=== PATIENT | female | born 1995 | race African-American/Black ===

== ENCOUNTER 2016-12-11 19:45 | Emergency (ER) | payer OTHER ==
[~2016-12-11] VITALS: Ht 167.6 cm; Wt 60.8 kg
[2016-12-11 19:52] VITALS: BP 104/66; PULSE 72; RESP 16; TEMP 98.2; O2SAT 100
--- NOTE | 2016-12-11 21:04 | PD ---
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 The patient reports that for the last 3 days, she has intermittently been experiencing pressure/pain inside her vagina. Pain is worse with movements and certain sitting positions. Currently the patient denies having any pain. She denies vaginal bleeding or discharge. States that her last [place]. Was about a week ago. She is sexually active with more than one partner. No history of abdominal surgeries. No urinary symptoms. PFSH Social History Tobacco Use: No (former smoker) Allergies-Medications (Allergen,Severity, Reaction): Coded Allergies: No Known Allergies (Unverified , 12/11/16) Reported Meds & Prescriptions Reported Meds & Active Scripts Active Naprosyn (Naproxen) 500 Mg Tab 500 Mg PO BID Macrobid (Nitrofurantoin Monoh/Nitrofur Macro) 100 Mg Cap 100 Mg PO BID 7 Days Review of Systems Except as stated in HPI: all other systems reviewed are Neg Physical Exam Narrative GENERAL: Well-developed, well-nourished, comfortable, no acute distress. SKIN: Focused skin assessment warm/dry. CARDIOVASCULAR: Regular rate and rhythm. RESPIRATORY: No accessory muscle use. Clear to auscultation. Breath sounds equal bilaterally. GASTROINTESTINAL: Abdomen soft, non-tender, nondistended. Normal bowel sounds. No hernias. INDEPENDENT CONTRACTOR: Exam performed in the presence of female nurse. Normal external genitalia. Scant/whitish vaginal discharge. No vaginal bleeding. Normal cervix. Mild uterine tenderness. No CMT. No adnexal masses or tenderness. MUSCULOSKELETAL: No obvious deformities. No clubbing. No cyanosis. No edema. NEUROLOGICAL: Awake and alert. No obvious cranial nerve deficits. Motor grossly within normal limits. Normal speech. PSYCHIATRIC: Appropriate mood and affect; insight and judgment normal. Data Data Last Documented VS Vital Signs Date Time Temp Pulse Resp B/P Pulse Ox O2 Delivery O2 Flow Rate FiO2 12/11/16 21:30 86 16 100/65 100 Room Air 12/11/16 19:52 98.2 Orders Gc And Chlamydia Pcr (12/11/16 20:53) Wet Prep Profile (12/11/16 20:53) Urinalysis - C+S If Indicated (12/11/16 20:53) Ed Urine Pregnancytest Poc (12/11/16 20:53) Azithromycin Powd Pack (Zithromax Powd P (12/11/16 21:15) Ceftriaxone Inj (Rocephin Inj) (12/11/16 21:15) Lidocaine 1% Inj (50 Ml) (Xylocaine 1% I (12/11/16 21:15) Urine Culture (12/11/16 20:40) Nitrofurantoin Monohyd Macrocr (Macrobid (12/11/16 21:45) Naproxen (Naprosyn) (12/11/16 21:45) Labs Laboratory Tests Test 12/11/16 12/11/16 20:40 20:50 Urine Color STRAW Urine Turbidity SL Urine pH 6.5 Urine Specific [place] 1.012 Urine Protein NEG mg/dL Urine Glucose (UA) NEG mg/dL Urine Ketones NEG mg/dL Urine Occult Blood NEG Urine Nitrite NEG Urine Bilirubin NEG Urine Leukocyte Esterase MOD Urine RBC 0-3 /hpf Urine WBC 15-19 /hpf Urine Squamous Epithelial 0-5 /hpf Cells Urine Bacteria OCC /hpf Microscopic Urinalysis Comment CULTURE INDICATED Clue Cells (Wet Prep) NONE SEEN Vaginal Trichomonas (Wet Prep) NONE SEEN Vaginal Yeast (Wet Prep) NONE SEEN MDM Medical Decision Making Medical Screen Exam Complete: Yes Emergency Medical Condition: Yes Differential Diagnosis PID, BV, vulvovaginal candidiasis, UTI, cystitis, , ectopic , TOA, ovarian cyst, ovarian torsion unlikely Narrative Course Vital signs show heart rate 72, blood pressure 104/66, pulse ox 100% on room air , oral temp of 98.2F. Abdominal exam is benign. INDEPENDENT CONTRACTOR exam shows some mild uterine tenderness, no CMT, no adnexal masses or tenderness, scant whitish vaginal discharge. Patient has elected to receive emperic treatment for gonorrhea and chlamydia. UA: Moderate leukocyte esterase, 15-19 wbc's, occasional bacteria, culture indicated. Patient will be started on Macrobid. Wet prep is negative for yeast, negative for Trichomonas, negative for clue cells Patient was made aware of all findings. She is resting comfortably. Again she has no pain here in the emergency department. Her abdominal exam is benign. I do not believe that there is no acute surgical process to warrant imaging at this time. She will be discharged home with a prescription for Macrobid and Naprosyn. PMD/INDEPENDENT CONTRACTOR follow-up this week. She was informed on when to return to the emergency department. She verbalizes understanding and agreement with plan. Diagnosis Primary Impression: Pelvic pain Additional Impression: UTI (urinary tract infection) Qualified Code: N39.0 - Urinary tract infection without hematuria, site unspecified Referrals: Diann Brown MD 3 days Dental Service Chief Primary Care Physician 3 days Additional Instructions: Follow-up with a primary care physician this week. Follow-up with a convict guard this week. Return to the emergency department for worsening symptoms or any other concerns. Scripts Naproxen (Naprosyn)500 Mg [id number] Mg PO BID #14 TAB Ref 0 Prov:Ronnie Mendieta MD 12/11/16 Nitrofurantoin Monohydrate Macrocrystals (Macrobid)100 Mg [id number] Mg PO BID 7 Days Ref 0 Prov:Ronnie Mendieta MD 12/11/16 Disposition: 01 DISCHARGE HOME Condition: Stable Ronnie Mendieta MD December 11, 2016 21:04
[2016-12-11] MEDS ORDERED: LIDOCAINE HCL 1% 50 ML VIAL IM ONE (21:15)
[2016-12-11] MEDS ORDERED: cefTRIAXone 250 MG VIAL IM ONE (21:15)
[2016-12-11] MEDS ORDERED: AZITHROMYCIN PWD FOR SUSP 1 GM PACKET PO ONE (21:15)
[2016-12-11 21:18] LABS: BLOOD, URINE NEG (NEG); GLUCOSE,URINE NEG (NEG); KETONE, URINE NEG (NEG); NITRITE,URINE NEG (NEG); PH, URINE 6.5 (5.0-8.5)
[2016-12-11 21:30] VITALS: BP 100/65; PULSE 86; RESP 16; O2SAT 100
[2016-12-11 21:31] LABS: BACTERIA, URINE OCC /hpf; COMMENT (UR) CULTURE INDICATED; CULTURE IF INDICATED CULTURE INDICATED; RBC, URINE 0-3 /hpf (0-3); SQUAMOUS EPITHELIAL CELL URINE 0-5 /hpf (0-5); URINE COLOR STRAW (YELLW/STRAW); WBC, URINE 15-19 /hpf (0-5)
[2016-12-11] MEDS ORDERED: NAPR500 PO (21:40)
[2016-12-11] MEDS ORDERED: MACR100C2 PO (21:40)
[2016-12-11] MEDS ORDERED: NITROFURANTOIN MONOHYD MACROCR 100 MG CAP PO ONE (21:45)
[2016-12-11] MEDS ORDERED: NAPROXEN 500 MG TAB PO ONE (21:45)
[2016-12-12 12:53] LABS: CHLAMYDIA PCR DETECTED (NOT DETECT); NEISSERIA PCR DETECTED (NOT DETECT)
== END 2016-12-11 21:59 | disposition home or self-care (01) ==
LOC: PHED 19:45
DX: N39.0 Urinary tract infection, site not specified (principal); R10.2 Pelvic and perineal pain; B96.29 Other Escherichia coli [E. coli] as the cause of diseases classified elsewhere
CPT/HCPCS: 81001; 84703; 87086; 87210; 87491; 87591; 96372; 99284; J0696

== ENCOUNTER 2017-04-10 08:42 | Emergency (ER) | payer MEDICAID, OTHER ==
[~2017-04-10] VITALS: Ht 167.6 cm; Wt 58.0 kg
[~2017-04-10 08:42] MED LIST: MACR100C2 PO; NAPR500 PO
[2017-04-10 08:51] VITALS: BP 106/58; PULSE 72; RESP 18; TEMP 97.7; O2SAT 100
[2017-04-10] MEDS ORDERED: ACYC400T PO (09:52)
[2017-04-10] MEDS ORDERED: NORC5TAB PO (09:52)
--- NOTE | 2017-04-10 09:52 | PD ---
HPI . 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 She states that she initially attributed the pain to a "tear" secondary to sexual intercourse. She kept thinking that it would get better. However, it did not. Pain is currently rated 1/10 but gets much worse with attempted sexual intercourse. She denies any associated vaginal discharge or abnormal vaginal bleeding. She denies any previous similar history. She has not tried any over- the-counter or homeopathic remedies. She states her pain has been continuous and persistent causing her to present us today. PFSH Past Medical History Medical History: Denies Significant Hx Diminished Hearing: No Immunizations Current: Yes Influenza Vaccination: No ?: Not : 0 Past Surgical History Surgical History: No Previous Surgery Social History Alcohol Use: Yes (OCC) Tobacco Use: No (former smoker) Substance Use: No (DENIES) Allergies-Medications (Allergen,Severity, Reaction): Coded Allergies: No Known Allergies (Unverified , 04/10/17) Reported Meds & Prescriptions Reported Meds & Active Scripts Active [place] (Hydrocodone-Acetaminophen) 5-325 mg Tab 1 Tab PO Q4H PRN Acyclovir 400 Mg Tab 400 Mg PO TID 10 Days Review of Systems Except as stated in HPI: all other systems reviewed are Neg General / Constitutional: No: Fever, Chills Genitourinary: Positive: Dysuria, Dyspareunia, No: Urgency, Frequency, Pelvic Pain, Discharge, Vaginal Bleeding Physical Exam Narrative GENERAL: This patient is awake and alert in acute distress. SKIN: No rashes. HEAD: Normocephalic/atraumatic. EYES: Pupils are equal. Extraocular movements are intact. NECK: Full range of motion with no apparent pain. CARDIOVASCULAR: Normal heart rate. RESPIRATORY: Nonlabored respirations. : Pelvic exam was very difficult. She has an ulcerative lesion at 6:00 at the vaginal introitus. It is extremely tender preventing bimanual or speculum exam. There is no discharge noted. There are no other lesions seen. I used a Q-tip to obtain a wet prep. A herpes culture was obtained from the lesion and the chlamydia probe will be done on the urine. MUSCULOSKELETAL: Atraumatic. NEUROLOGICAL: Nonfocal. PSYCHIATRIC: Appropriate mood and affect. Data Data Last Documented VS Vital Signs Date Time Temp Pulse Resp B/P (MAP) Pulse Ox O2 Delivery O2 Flow Rate FiO2 04/10/17 08:51 97.7 72 18 106/58 (74) 100 Room Air Orders Orders Wet Prep Profile (04/10/17 09:09) Ed Urine Pregnancytest Poc (04/10/17 09:11) Herpes Simplex Virus Culture (04/10/17 09:36) Gc And Chlamydia Pcr (04/10/17 09:36) Labs Laboratory Tests Test 04/10/17 09:28 Clue Cells (Wet Prep) NONE SEEN Vaginal Trichomonas (Wet Prep) NONE SEEN Vaginal Yeast (Wet Prep) NONE SEEN MDM Medical Decision Making Medical Screen Exam Complete: Yes Emergency Medical Condition: Yes Differential Diagnosis Differential diagnosis of vaginal pain includes but is not limited to yeast infection, herpes, local trauma Narrative Course This patient presents with a two-week history of vaginal pain. Her symptomatology is consistent with herpes but she only has one lesion. Assuming this is herpes, this is her primary episode. Therefore, she will be treated with acyclovir. HCG and wet prep are negative. Diagnosis Primary Impression: Vulvar pain Referrals: [facility] call for appointment Patient Instructions: General Instructions Departure Forms: Tests/Procedures Med/Other Pt SpecificInfo: Prescription(s) given Scripts Hydrocodone-Acetaminophen ([place]) 5-325 mg Tab 1 TAB PO Q4H Y for PAIN, #12 TAB 0 Refills Prov: Diana Allen MD 04/10/17 Acyclovir (Acyclovir) 400 Mg Tab 400 MG PO TID for Mgmt Viral Infection for 10 Days, TAB 0 Refills Prov: Diana Allen MD 04/10/17 Disposition: 01 DISCHARGE HOME Condition: Stable Diana Allen MD Apr 10, 2017 09:52
[2017-04-10 10:30] VITALS: BP 122/74
[2017-04-10 15:34] LABS: CHLAMYDIA PCR NOT DETECTED (NOT DETECT); NEISSERIA PCR NOT DETECTED (NOT DETECT)
== END 2017-04-10 10:31 | disposition home or self-care (01) ==
LOC: PHED 08:42
DX: R10.2 Pelvic and perineal pain (principal)
CPT/HCPCS: 84703; 87210; 87255; 87491; 87591; 99284

== ENCOUNTER 2018-01-07 17:45 | Emergency (ER) | payer OTHER ==
[~2018-01-07] VITALS: Ht 165.1 cm; Wt 56.4 kg
[~2018-01-07 17:45] MED LIST changes: +ACYC400T PO; -MACR100C2 PO; -NAPR500 PO; +NORC5TAB PO
[2018-01-07 17:55] VITALS: BP 114/57; PULSE 91; RESP 16; TEMP 98.6; O2SAT 100
[2018-01-07 18:11] LABS: BILIRUBIN, URINE NEG (NEG); BLOOD, URINE NEG (NEG); GLUCOSE,URINE NEG (NEG); KETONE, URINE NEG (NEG); NITRITE,URINE NEG (NEG); PH, URINE 8.5 (5.0-8.5); URINE COLOR YELLOW (YELLW/STRAW); URINE LEUKOCYTE ESTERASE NEG (NEG)
[2018-01-07 18:16] LABS: BACTERIA, URINE FEW /hpf; RBC, URINE 0-2 /hpf (0-3)
[2018-01-07] MEDS ORDERED: MACR100C2 PO (18:22)
--- NOTE | 2018-01-07 18:22 | PD ---
HPI Chief Complaint: Complaint Time Seen by Provider: 18:17 Travel History International Travel<30 days: No Contact w/Intl Traveler<30days: No Traveled to known affect area: No History of Present Illness HPI Patient is a 22-year-old female who presents the emergency room with complaints of urinary urgency as well as pressure with urination which has been ongoing since yesterday. Patient reports that she has had history of urinary tract infections in the past, reports "this feels exactly the same as before when I was diagnosed with a uti." Patient denies any dysuria or urinary frequency. Patient denies any flank pain. Patient with no abdominal pain, no nausea or vomiting, patient with no other complaints. PFSH Past Medical History Medical History: Denies Significant Hx Diminished Hearing: No Immunizations Current: Yes Tetanus Vaccination: Unknown Influenza Vaccination: No ?: Not LMP: 12/26/17 : 0 Past Surgical History Surgical History: No Previous Surgery Social History Alcohol Use: Yes (OCC) Tobacco Use: No (former smoker) Substance Use: Yes (OCC MARIJUANA) Allergies-Medications (Allergen,Severity, Reaction): Coded Allergies: No Known Allergies (Verified Adverse Reaction, Unknown, 01/07/18) Reported Meds & Prescriptions Reported Meds & Active Scripts Active Macrobid (Nitrofurantoin Monoh/Nitrofur Macro) 100 Mg Cap 100 Mg PO BID 10 Days Review of Systems General / Constitutional: No: Fever Eyes: No: Visual changes HENT: No: Headaches Cardiovascular: No: Chest Pain or Discomfort Respiratory: No: Shortness of Breath Gastrointestinal: No: Abdominal Pain Genitourinary: Positive: Urgency, Hesitancy, No: Frequency, Dysuria Musculoskeletal: No: Pain Skin: No Rash Neurologic: No: Weakness Psychiatric: No: Depression Endocrine: No: Polydipsia Hematologic/Lymphatic: No: Easy Bruising Physical Exam Narrative GENERAL: Well-nourished, well-developed patient. SKIN: Focused skin assessment warm/dry. HEAD: Normocephalic. EYES: No scleral icterus. No injection or drainage. NECK: Supple, trachea midline. No JVD or lymphadenopathy. CARDIOVASCULAR: Regular rate and rhythm without murmurs, gallops, or rubs. RESPIRATORY: Breath sounds equal bilaterally. No accessory muscle use. GASTROINTESTINAL: Abdomen soft, non-tender, nondistended. MUSCULOSKELETAL: No cyanosis, or edema. BACK: Nontender without obvious deformity. No CVA tenderness. Data Data Last Documented VS Vital Signs Date Time Temp Pulse Resp B/P (MAP) Pulse Ox O2 Delivery O2 Flow Rate FiO2 01/07/18 17:55 98.6 91 16 114/57 (76) 100 Orders Orders Urinalysis - C+S If Indicated (01/07/18 17:56) Urine Culture (01/07/18 18:09) Nitrofurantoin Monohyd Macrocr (Macrobid (01/07/18 18:30) Labs Laboratory Tests Test 18 18:09 Urine Color YELLOW Urine Turbidity CLOUDY Urine pH 8.5 Urine Specific [place] 1.015 Urine Protein 30 mg/dL Urine Glucose (UA) NEG mg/dL Urine Ketones NEG mg/dL Urine Occult Blood NEG Urine Nitrite NEG Urine Bilirubin NEG Urine Urobilinogen 0.2 MG/DL Urine Leukocyte Esterase NEG Urine RBC 0-2 /hpf Urine WBC 50-99 /hpf Urine Squamous Epithelial Cells 6-8 /hpf Urine Bacteria FEW /hpf Microscopic Urinalysis Comment CULTURE INDICATED MDM Medical Decision Making Medical Screen Exam Complete: Yes Emergency Medical Condition: Yes Medical Record Reviewed: Yes Interpretation(s) Vital Signs Date Time Temp Pulse Resp B/P (MAP) Pulse Ox O2 Delivery O2 Flow Rate FiO2 01/07/18 17:55 98.6 91 16 114/57 (76) 100 Laboratory Tests Test 18 18:09 Urine Color YELLOW (YELLW/STRAW) Urine Turbidity CLOUDY (CLEAR) Urine pH 8.5 (5.0-8.5) Urine Specific [place] 1.015 (1.002-1.035) Urine Protein 30 mg/dL (NEG-TRACE) Urine Glucose (UA) NEG mg/dL (NEG) Urine Ketones NEG mg/dL (NEG) Urine Occult Blood NEG (NEG) Urine Nitrite NEG (NEG) Urine Bilirubin NEG (NEG) Urine Urobilinogen 0.2 MG/DL (LESS THAN Urine Leukocyte Esterase NEG (NEG) Urine RBC 0-2 /hpf (0-3) Urine WBC 50-99 /hpf (0-5) Urine Squamous Epithelial Cells 6-8 /hpf (0-5) Urine Bacteria FEW /hpf (NONE) Microscopic Urinalysis Comment CULTURE INDICATED Differential Diagnosis UTI versus PID versus Pyelonephritis Narrative Course Patient with symptomatic UTI Laboratory Tests Test 6/18/18 18:09 Urine Color YELLOW (YELLW/STRAW) Urine Turbidity CLOUDY (CLEAR) Urine pH 8.5 (5.0-8.5) Urine Specific [place] 1.015 (1.002-1.035) Urine Protein 30 mg/dL (NEG-TRACE) Urine Glucose (UA) NEG mg/dL (NEG) Urine Ketones NEG mg/dL (NEG) Urine Occult Blood NEG (NEG) Urine Nitrite NEG (NEG) Urine Bilirubin NEG (NEG) Urine Urobilinogen 0.2 MG/DL (LESS THAN Urine Leukocyte Esterase NEG (NEG) Urine RBC 0-2 /hpf (0-3) Urine WBC 50-99 /hpf (0-5) Urine Squamous Epithelial Cells 6-8 /hpf (0-5) Urine Bacteria FEW /hpf (NONE) Microscopic Urinalysis Comment CULTURE INDICATED will start macrobid treatment she will follow up with all cultures from today Diagnosis Primary Impression: UTI (urinary tract infection) Qualified Codes: N30.00 - Acute cystitis without hematuria Patient Instructions: General Instructions Additional Instructions: Please take all antibiotics as prescribed Please follow-up with all cultures from today Med/Other Pt SpecificInfo: Prescription(s) given Scripts Nitrofurantoin Monohydrate Macrocrystals (Macrobid) 100 Mg Cap 100 MG PO BID for Infection for 10 Days, #20 CAP 0 Refills Prov: Hillary Solomon DO 01/07/18 Disposition: 01 DISCHARGE HOME Condition: Stable Hillary Solomon DO Jan 07, 2018 18:22
[2018-01-07] MEDS ORDERED: NITROFURANTOIN MONOHYD MACROCR 100 MG CAP PO ONE (18:30)
== END 2018-01-07 18:40 | disposition home or self-care (01) ==
LOC: PHEFT 17:45
DX: N30.00 Acute cystitis without hematuria (principal); B96.4 Proteus (mirabilis) (morganii) as the cause of diseases classified elsewhere
CPT/HCPCS: 81001; 87077; 87086; 87186; 99283